=== PATIENT | male | born 1960 | race Caucasian/White ===

== ENCOUNTER 2023-08-10 07:10 | Day surgery (SDC) | payer MEDICARE ==
[~2023-08-10] VITALS: Ht 180.3 cm; Wt 104.3 kg
[~2023-08-10 07:10] MED LIST: AMLODIPINE BESY10 MG PO; ANORO ELLIPTA 61 AER IN; ASPIRIN ADULT L81 M2; AUGMENTIN875TAB OR; B125000 MCG; BACTROBAN2 % EX; CARVEDILOL25 MG PO; CLOPIDOGREL75 MG PO; COZAAR25 MG PO; D31000 UNIT PO; IMDUR30 MG PO; ISOSORBIDE MONO60 MG PO; JANUVIA100 MG PO; LIPITOR20 MG OR; LIPITOR80 M1 PO; METFORMIN500 M2 PO; NO HOME MEDS; OMEGA 31000 MG PO; PLAVIX75 MG OR; PRINIVIL5 MG OR; PROAIR HFA IN; QVAR80 MCG IN; SIMVASTATIN80 MG PO; TH ASPIRIN LOW81 MG OR; TOPROL XL50 MG PO; TURMERIC450 MG; UNKNOWN ANTIBIOTIC; ZETIA10 MG PO; [UNRECOGNIZED DRUG - REMARK]
[2023-08-10] MEDS ORDERED: SODIUM CHLORIDE 0.9% 10 ML SYR ONE (08:06)
[2023-08-10] MEDS ORDERED: BUPIVACAINE HCL PF 0.5 % 50 MG/10 ML SDV ONE (09:27)
[2023-08-10] MEDS ORDERED: TRIAMCINOLONE ACETONIDE 40 MG/ML ML ONE (09:27)
[2023-08-10] MEDS ORDERED: LIDOCAINE HCL 1% (10MG/ML) 100 MG/10 ML MDV ONE (09:27)
[2023-08-10] MEDS ORDERED: Iopamidol 61% 5 ML SYR IV ONE (10:12)
[2023-08-10 10:41] VITALS: BP 146/74
== END 2023-08-10 09:37 | disposition home or self-care (01) ==
LOC: ORM 07:10
PROVIDERS: ATTEND Student in an Organized Health Care Education/Training Program
DX: M25.551 Pain in right hip (principal); M16.11 Unilateral primary osteoarthritis, right hip; G89.4 Chronic pain syndrome
CPT/HCPCS: J3301; Q9967

== ENCOUNTER 2023-09-14 06:50 | Day surgery (SDC) | payer MEDICARE ==
[~2023-09-14] VITALS: Ht 180.3 cm; Wt 102.5 kg
[2023-09-14] MEDS ORDERED: SODIUM CHLORIDE 0.9% 10 ML SYR ONE ×2 (07:23→07:55)
[2023-09-14] MEDS ORDERED: BUPIVACAINE HCL PF 0.5 % 50 MG/10 ML SDV ONE (07:52)
[2023-09-14] MEDS ORDERED: LIDOCAINE HCL 1% (10MG/ML) 100 MG/10 ML MDV ONE (07:52)
[2023-09-14] MEDS ORDERED: MIDAZOLAM HCL 2 MG/2 ML VIAL ONE (07:55)
[2023-09-14 08:30] VITALS: BP 137/68
== END 2023-09-14 08:35 | disposition home or self-care (01) ==
LOC: ORM 06:50
PROVIDERS: ATTEND Student in an Organized Health Care Education/Training Program
DX: M47.816 Spondylosis without myelopathy or radiculopathy, lumbar region (principal); M25.551 Pain in right hip; G89.4 Chronic pain syndrome

== ENCOUNTER 2023-10-12 06:47 | Day surgery (SDC) | payer MEDICARE ==
[~2023-10-12] VITALS: Ht 177.8 cm; Wt 104.3 kg
[2023-10-12] MEDS ORDERED: COMBIVENT RESPIMAT IN (07:06)
[2023-10-12] MEDS ORDERED: BUPIVACAINE HCL PF 0.5 % 50 MG/10 ML SDV ONE (08:17)
[2023-10-12] MEDS ORDERED: LIDOCAINE HCL 1% (10MG/ML) 100 MG/10 ML MDV ONE (08:17)
[2023-10-12 09:27] VITALS: BP 160/78
== END 2023-10-12 08:55 | disposition home or self-care (01) ==
LOC: ORM 06:47
PROVIDERS: ATTEND Student in an Organized Health Care Education/Training Program
DX: M47.816 Spondylosis without myelopathy or radiculopathy, lumbar region (principal); G89.4 Chronic pain syndrome

== ENCOUNTER 2023-11-09 06:43 | Day surgery (SDC) | payer MEDICARE ==
[~2023-11-09] VITALS: Ht 177.8 cm; Wt 99.8 kg
[~2023-11-09 06:43] MED LIST changes: +COMBIVENT RESPIMAT IN
[2023-11-09] MEDS ORDERED: MIDAZOLAM HCL 2 MG/2 ML VIAL ONE (07:47)
[2023-11-09] MEDS ORDERED: LIDOCAINE MPF 1% (10 MG/ML) 5 ML VIAL ONE (08:18)
[2023-11-09 09:29] VITALS: BP 121/73
== END 2023-11-09 08:40 | disposition home or self-care (01) ==
LOC: ORM 06:43
PROVIDERS: ATTEND Student in an Organized Health Care Education/Training Program
DX: M47.816 Spondylosis without myelopathy or radiculopathy, lumbar region (principal); G89.4 Chronic pain syndrome; M25.551 Pain in right hip

== ENCOUNTER 2024-01-11 06:51 | Day surgery (SDC) | payer MEDICARE ==
[~2024-01-11] VITALS: Ht 180.3 cm; Wt 99.8 kg
[2024-01-11] MEDS ORDERED: SODIUM CHLORIDE 0.9% 10 ML SYR ONE (06:56)
[2024-01-11] MEDS ORDERED: LIDOCAINE HCL 1% (10MG/ML) 100 MG/10 ML MDV ONE (08:18)
[2024-01-11] MEDS ORDERED: TRIAMCINOLONE ACETONIDE 40 MG/ML ML ONE (08:18)
[2024-01-11] MEDS ORDERED: BUPIVACAINE HCL PF 0.5 % 50 MG/10 ML SDV ONE (08:18)
[2024-01-11] MEDS ORDERED: Iopamidol 61% 5 ML SYR IV ONE (08:19)
[2024-01-11 08:47] VITALS: BP 168/71
== END 2024-01-11 08:46 | disposition home or self-care (01) ==
LOC: ORM 06:51
PROVIDERS: ATTEND Student in an Organized Health Care Education/Training Program
DX: M25.551 Pain in right hip (principal); M16.11 Unilateral primary osteoarthritis, right hip; G89.4 Chronic pain syndrome; M47.816 Spondylosis without myelopathy or radiculopathy, lumbar region
CPT/HCPCS: J3301; Q9967

== ENCOUNTER → 2024-03-07 | Day surgery (SDC) | payer MEDICARE ==
[~2024-03-07] VITALS: Ht 179.1 cm; Wt 97.5 kg
[~2024-03-07] MED LIST changes: +BUPIVACAINE HCL PF 0.5 % 50 MG/10 ML SDV ONE; +Iopamidol 61% 5 ML SYR IV ONE; +LIDOCAINE MPF 1% (10 MG/ML) 5 ML VIAL ONE; +SODIUM CHLORIDE 0.9% 10 ML SYR ONE; +TRIAMCINOLONE ACETONIDE 40 MG/ML ML ONE
[2024-03-07 08:52] VITALS: BP 133/67
== END ==
LOC: ORM 06:35
PROVIDERS: ATTEND Student in an Organized Health Care Education/Training Program
DX: M46.1 Sacroiliitis, not elsewhere classified (principal); M53.3 Sacrococcygeal disorders, not elsewhere classified; G89.4 Chronic pain syndrome
CPT/HCPCS: J3301; Q9967